=== PATIENT | male | born 1990 | race Caucasian/White ===

== ENCOUNTER 2016-09-03 20:55 | Outpatient (CLI) | payer OTHER | END 2016-09-04 06:35 | disposition home or self-care (01) | LOC: SLEEP 20:55 | PROVIDERS: ATTEND Otolaryngology Otolaryngology/Facial Plastic Surgery | DX: G47.10 Hypersomnia, unspecified (principal); I10 Essential (primary) hypertension | CPT/HCPCS: 95810 ==